=== PATIENT | female | born 1985 | race Caucasian/White ===

== ENCOUNTER 2018-07-15 13:14 | Observation (INO) ==
--- NOTE | 2018-07-15 15:30 | Urology - Consult Note ---
Date of Encounter: 07/15/18 Time of Encounter: 15:27 - Assessment and Plan (1) Right kidney stone Current Visit: Yes Status: Acute Assessment and plan: Patient with intractable right-sided flank pain requiring observation in the hospital for pain control. Patient will be scheduled tomorrow morning for cystoscopy and right ureteral stent placement if she fails to pass her stone before then (2) Nausea and vomiting Current Visit: Yes Status: Acute Assessment and plan: Patient with persistent nausea and vomiting. Continue with IV nausea medication. Qualifiers: Vomiting type: unspecified Qualified Code(s): R11.2 - Nausea with vomiting, unspecified Urology CN:HPI Consult date: 07/15/18 Reason for consult Urology: Hydronephrosis Requesting physician: Shan Hassan History of present illness: Becky is a 32-year-old female who is known to me secondary to right UPJ stone. Patient was evaluated in the office yesterday. Patient states that her pain became and bearable and she went to outside hospital emergency department. Patient also with persistent nausea and vomiting. No fevers at home. Patient states that her pain is currently controlled but was a 10 out of 10 with location and the right flank with radiation to her right groin sharp in nature. Past Med Surg Social Fam HX - Past Medical History Medical history: kidney stones, thyroid disease Psychiatric history: no psych history - Social History Smoking Status: Never smoker Smokeless Tobacco Status: No Alcohol use: none Drug use: none Medications and Allergies Levothyroxine [Synthroid] 25 mcg PO 0630 06/25/16 [History] Norgestimate-Ethinyl Estradiol [Trinessa Tablet] 1 each PO DAILY 06/25/16 [History] Calcitriol 0.5 mcg PO DAILY 07/06/18 [History] Ergocalciferol (VITAMIN D2) [Vitamin D2] 50,000 unit PO DAILY 07/06/18 [History] FLUoxetine HCl [Fluoxetine HCl] 40 mg PO DAILY 07/06/18 [History] Ondansetron ODT [Zofran ODT] 4 mg SL Q8HR PRN #14 tab.rapdis 07/06/18 [Rx] Allergy/AdvReac Type Severity Reaction Status Date / Time No Known Allergies Allergy Verified 06/25/16 13:24 Review of Systems - Constitutional no chills, no fever(s) - EENT Nose, mouth and throat: no dizziness - Cardiovascular no chest pain - Respiratory no cough, no dyspnea - Gastrointestinal abdominal pain, nausea, vomiting - Musculoskeletal back pain, no muscle weakness - Integumentary no swelling, no unusual bruising - Neurological no confusion, no weakness - Psychiatric anxiety - Hematologic/Lymphatic no lymphadenopathy - Allergic/Immunologic no throat swelling, no wheezing Exam Afebrile vital signs stable General/Neuological: alert and oriented x 3 Eyes: normal pupils, non-icteric Neck: no lymphadenopathy noted, supple to touch Cardiovascular: RRR, no murmurs Respiratory: normal respiratory effort, clear bilaterally ABD: soft, nontender, no masses palpated, good bowel sounds Back: Right flank pain on percussion normal left side spine straight Skin: no rashes noted Musculoskeletal: normal gait, FROMx4 Urology Results - Labs All other labs normal. Consult Discharge Plan - Plan Referrals: Giuliana Rogers, KARTHIK [Primary Care Provider] -
[2018-07-15] MEDS ORDERED: Levofloxacin 500 MG/100 ML 500 MG/100 ML BAG IVPB SCH (15:31)
[2018-07-15] MEDS ORDERED: Naloxone 0.4 MG/ML INJ IVP PRN (15:45)
[2018-07-15] MEDS ORDERED: Ondansetron 4 MG/2 ML VIAL IVP PRN (15:48)
--- NOTE | 2018-07-15 16:06 | Internal Med History&Physical ---
Date of Encounter: 07/15/18 Time of Encounter: 16:00 Internal Medicine - H&P: HPI Chief complaint: Nausea and vomiting of 1 day duration History of present illness: Ms. Zepeda is a 32 year old female with no significant pmh presenting with complaints of nausea, vomiting and right flank pain of 2 weeks duration getting worse in the last 24 hrs. Patient is known to urology service and was accepted for admission by Dr. Kimbrough. She says she began having symptoms of urinary urgency about 2 weeks ago, and went to the ER where she had an xray showing a right sided stone. She was discharged on the presumption that the stone would pass but continued to have symptoms of flank pain, nausea and vomiting. Denies fevers. Admits to chills She went back to the ER, and a CT scan was done showing a 7mm right kidney stone. Urology was consulted and she is being admitted for further management Past Med Surg Social Fam HX - Past Medical History Medical history: kidney stones, thyroid disease Psychiatric history: no psych history - Social History Smoking Status: Never smoker Smokeless Tobacco Status: No Alcohol use: none Drug use: none - Family History Father Living Status: Age at : 60 Cause of : Heart attack Hx Family Cardiac Disorders: Yes (Hear disease and bypass surgeries) Internal Medicine - H&P: Meds Levothyroxine [Synthroid] 25 mcg PO 0630 06/25/16 [History] Norgestimate-Ethinyl Estradiol [Trinessa Tablet] 1 each PO DAILY 06/25/16 [History] Calcitriol 0.5 mcg PO DAILY 07/06/18 [History] Ergocalciferol (VITAMIN D2) [Vitamin D2] 50,000 unit PO DAILY 07/06/18 [History] FLUoxetine HCl [Fluoxetine HCl] 40 mg PO DAILY 07/06/18 [History] Ondansetron ODT [Zofran ODT] 4 mg SL Q8HR PRN #14 tab.rapdis 07/06/18 [Rx] Allergy/AdvReac Type Severity Reaction Status Date / Time No Known Allergies Allergy Verified 06/25/16 13:24 All Systems PM: A 10-system review of systems was performed and is negative for pertinent findings except as documented above in the HPI. - Constitutional Constitutional: no chills, no fever(s), no night sweats - EENT Eyes: no change in vision, no discharge, no pain, no photophobia Ears: no ear discharge, no ear pain, no tinnitus Nose, mouth and throat: no dysphagia, no nasal discharge, no neck pain, no sore throat - Cardiovascular Cardiovascular ROS IM: no chest pain, no diaphoresis, no dyspnea, no lighthea dedness, no palpitations, no syncope - Respiratory Respiratory: no cough, no dyspnea, no wheezing, no excessive phlegm production - Gastrointestinal Gastrointestinal: no abdominal pain, no diarrhea, no hematemesis, no trini tochezia, no melena, no nausea, no vomiting - Genitourinary Genitourinary: change in urinary stream, flank pain, no dysuria, no hematuria - Musculoskeletal Musculoskeletal ROS IM: no numbness, no tingling - Integumentary Integumentary IM: no rash, no unusual bruising - Neurological Neurological ROS: no confusion, no convulsions, no focal weakness, no numbness, no tingling, no tremor(s) - Hematologic/Lymphatic Hematologic/Lymphatic: no easy bruising - Constitutional Vitals: Temp Pulse Resp BP Pulse Ox 98.4 F 91 17 148/86 97 07/15/18 15:35 07/15/18 15:35 07/15/18 15:35 07/15/18 15:35 07/15/18 15:35 Exam: NAD - Head Head exam: Present: atraumatic, normocephalic - Eye Eye exam: Present: PERRL, conjuntiva pink, sclera anicteric Pupils: Present: PERRL - Neck Neck exam general surgery: Present: supple, trachea midline. Absent: lymphadenopathy - Respiratory Respiratory exam: Present: CTAB. Absent: accessory muscle use, rales, rhonchi, wheezes - Cardiovascular Cardiovascular exam: Present: RRR, +S1, +S2. Absent: diastolic murmur, gallop, rubs, systolic murmur - GI/Abdominal GI/Abdominal exam: Present: normal bowel sounds, soft, no peritoneal signs. Absent: distended, tenderness - Additional comments: Right flank pain - Extremities Exam Extremities exam: Present: warm, radial pulses palpable and symmetrical. Absent: calf tenderness, cyanotic, pedal edema - Neurological Exam Neurological exam: Present: CN II-XII intact, oriented X3, no focal deficits. Absent: pronater drift, facial droop, speech deficit - Skin Skin exam: Present: dry, intact Internal Med - H&P Results - Labs CBC & Chem 7: 07/15/18 16:07 07/15/18 16:07 - Assessment and plan (1) Right kidney stone Current Visit: Yes Status: Acute Assessment and plan: Started on Iv fluids and empiric antibiotics with levaquin. Urology plan to observe overnight and if no stone passage, will perform cystoscopy with ureteral stent placement (2) Nausea and vomiting Current Visit: Yes Status: Acute Assessment and plan: Zofran and phenergan IV prn Qualifiers: Vomiting type: unspecified Qualified Code(s): R11.2 - Nausea with vomiting, unspecified (3) Morbid obesity Current Visit: Yes Status: Acute Assessment and plan: Diet and exercise (4) Hypothyroidism Current Visit: Yes Status: Acute Assessment and plan: Continue levothyroxine Qualifiers: Hypothyroidism type: acquired Qualified Code(s): E03.9 - Hypothyroidism, unspecified (5) DVT prophylaxis Current Visit: Yes Status: Acute Assessment and plan: heparin sc - Time Spent With Patient Total time spent is greater than 50% in coordination of care (as documented) at patient's floor/unit and/or counseling patient:
[2018-07-15 16:18] LABS: Basophils # 0.1 K/mcL (0.0-0.2); Basophils % 1.1 %; Eosinophils # 0.2 K/mcL (0.0-0.6); Hematocrit 35.1 % (35.3-44.9); Hemoglobin 11.5 g/dL (11.5-15.4); Immature Granulocytes % 0.2 % (0-4); Lymphocytes # 3.7 K/mcL (0.6-4.6); Lymphocytes % 40.1 %; Mean Corpuscular HGB Conc 32.8 g/dL (31.6-35.5); Mean Corpuscular Hemoglobin 26.5 pg (28.0-33.3); Mean Corpuscular Volume 80.9 fL (83.0-100.0); Mean Platelet Volume 9.3 fL (9.4-12.4); Monocytes # 0.6 K/mcL (0.0-1.3); Monocytes % 6.3 %; Neutrophils # 4.7 K/mcL (1.6-8.9); Platelet Count 315 K/mcL (140-400); Red Blood Count 4.34 M/mcL (3.82-4.97); Red Cell Distribution Width 13.7 % (11.5-14.5); Segmented Neutrophils % 50.3 %
[2018-07-15] MEDS ORDERED: *HR* Promethazine 25 MG/ML VIAL IVP PRN (16:33)
[2018-07-15] MEDS ORDERED: Acetaminophen 325 MG TABLET PO PRN (16:34)
[2018-07-15] MEDS ORDERED: Ketorolac 30 MG/ML VIAL IVP PRN (16:34)
[2018-07-15 16:37] LABS: BUN/Creatinine Ratio 23 (6-26); Blood Urea Nitrogen 17 mg/dL (6-20); Calcium 8.6 mg/dL (8.6-10.3); Carbon Dioxide 21 mEq/L (23-29); Chloride 108 mEq/L (98-107); Glucose 85 mg/dL (70-105); Osmolality,Calculated 287 (280-300); Potassium 3.8 mEq/L (3.5-5.1); Sodium 138 mEq/L (136-145); eGFR For Non-African Americans > 60 (> 60)
[2018-07-15] MEDS: 0.9 % Sodium Chloride 1,000 ML IVC SCH (17:03)
[2018-07-15] MEDS: *HR* Heparin 5,000 UNIT/ML VIAL SQ SCH (17:49)
[2018-07-15] MEDS ORDERED: FLUoxetine 20 MG CAPSULE PO SCH (21:00)
[2018-07-16] MEDS: 0.9 % Sodium Chloride 1,000 ML IVC SCH (04:16)
[2018-07-16] MEDS: *HR* Heparin 5,000 UNIT/ML VIAL SQ SCH (05:20)
[2018-07-16 05:43] LABS: Basophils # 0.1 K/mcL (0.0-0.2); Basophils % 1.3 %; Eosinophils # 0.2 K/mcL (0.0-0.6); Eosinophils % 2.6 %; Hematocrit 33.3 % (35.3-44.9); Hemoglobin 10.6 g/dL (11.5-15.4); Immature Granulocytes % 0.3 % (0-4); Lymphocytes # 3.5 K/mcL (0.6-4.6); Lymphocytes % 51.1 %; Mean Corpuscular HGB Conc 31.8 g/dL (31.6-35.5); Mean Corpuscular Volume 81.8 fL (83.0-100.0); Mean Platelet Volume 9.6 fL (9.4-12.4); Monocytes # 0.5 K/mcL (0.0-1.3); Monocytes % 7.1 %; Neutrophils # 2.6 K/mcL (1.6-8.9); Platelet Count 280 K/mcL (140-400); Red Blood Count 4.07 M/mcL (3.82-4.97); Red Cell Distribution Width 13.8 % (11.5-14.5); Segmented Neutrophils % 37.6 %
[2018-07-16 06:02] LABS: BUN/Creatinine Ratio 26 (6-26); Blood Urea Nitrogen 16 mg/dL (6-20); Calcium 8.5 mg/dL (8.6-10.3); Carbon Dioxide 22 mEq/L (23-29); Chloride 108 mEq/L (98-107); Glucose 90 mg/dL (70-105); Magnesium 1.7 mg/dL (1.6-2.6); Osmolality,Calculated 287 (280-300); Potassium 3.7 mEq/L (3.5-5.1); Sodium 138 mEq/L (136-145); eGFR For Non-African Americans > 60 (> 60)
[2018-07-16] MEDS ORDERED: Levothyroxine 25 MCG TABLET PO SCH (06:30)
--- NOTE | 2018-07-16 06:53 | Urology Progress Note ---
Date of Encounter: 07/16/18 Time of Encounter: 06:52 - Assessment and Plan (1) Right kidney stone Current Visit: Yes Status: Acute Assessment and plan: to or today for right ureteral stent placement (2) Nausea and vomiting Current Visit: Yes Status: Acute Qualifiers: Vomiting type: unspecified Qualified Code(s): R11.2 - Nausea with vomiting, unspecified Progress Note Narrative: patient seen. did not pass stone. to or today. Objective Initial Vital Signs Temp Pulse Resp BP Pulse Ox 98.4 F 91 17 148/86 97 07/15/18 15:35 07/15/18 15:35 07/15/18 15:35 07/15/18 15:35 07/15/18 15:35 - General physical appearance Present: well developed, well nourished - Abdomen Present: soft. Absent: tender - Labs 07/16/18 04:53 07/16/18 04:53 Diabetes panel 07/15/18 07/16/18 Range/Units 16:07 04:53 Sodium 138 138 (136-145) mEq/L Potassium 3.8 3.7 (3.5-5.1) mEq/L Chloride 108 H 108 H (98-107) mEq/L Carbon Dioxide 21 L 22 L (23-29) mEq/L BUN 17 16 (6-20) mg/dL Creatinine 0.73 0.61 (0.60-1.20) mg/dL Glucose 85 90 (70-105) mg/dL Calcium 8.6 8.5 L (8.6-10.3) mg/dL Calcium panel 07/15/18 07/16/18 Range/Units 16:07 04:53 Calcium 8.6 8.5 L (8.6-10.3) mg/dL Phosphorus 3.0 (2.7-4.5) mg/dL Pituitary panel 07/15/18 07/16/18 Range/Units 16:07 04:53 Sodium 138 138 (136-145) mEq/L Potassium 3.8 3.7 (3.5-5.1) mEq/L Chloride 108 H 108 H (98-107) mEq/L Carbon Dioxide 21 L 22 L (23-29) mEq/L BUN 17 16 (6-20) mg/dL Creatinine 0.73 0.61 (0.60-1.20) mg/dL Glucose 85 90 (70-105) mg/dL Calcium 8.6 8.5 L (8.6-10.3) mg/dL Adrenal panel 07/15/18 07/16/18 Range/Units 16:07 04:53 Sodium 138 138 (136-145) mEq/L Potassium 3.8 3.7 (3.5-5.1) mEq/L Chloride 108 H 108 H (98-107) mEq/L Carbon Dioxide 21 L 22 L (23-29) mEq/L BUN 17 16 (6-20) mg/dL Creatinine 0.73 0.61 (0.60-1.20) mg/dL Glucose 85 90 (70-105) mg/dL Calcium 8.6 8.5 L (8.6-10.3) mg/dL Consult Discharge Plan - Plan Referrals: Giuliana Rogers, KARTHIK [Primary Care Provider] -
--- NOTE | 2018-07-16 07:09 | Anesthesia Evaluation PreOp ---
Date of Encounter: 07/16/18 Time of Encounter: 07:10 - Past History Planned Operation: Cystoscopy, Right Ureteral Stent Placement Cardiac History: Denies any Significant Hx Pulmonary History: Denies Any Significant HX [employer]ATE [employer] History: Denies Any Significant HX Other Medical History: Renal (kidney stone), Thyroid Anesthesia History: Past Anesthesia, Problems (PONV) Test: Negative (07/15/2018) Alcohol Use: none Drug use: none Medications and Allergies Levothyroxine [Synthroid] 25 mcg PO 0630 06/25/16 [History] Norgestimate-Ethinyl Estradiol [Trinessa Tablet] 1 each PO DAILY 06/25/16 [History] Calcitriol 0.5 mcg PO DAILY 07/06/18 [History] Ergocalciferol (VITAMIN D2) [Vitamin D2] 50,000 unit PO DAILY 07/06/18 [History] FLUoxetine HCl [Fluoxetine HCl] 40 mg PO DAILY 07/06/18 [History] Ondansetron ODT [Zofran ODT] 4 mg SL Q8HR PRN #14 tab.rapdis 07/06/18 [Rx] Allergy/AdvReac Type Severity Reaction Status Date / Time No Known Allergies Allergy Verified 06/25/16 13:24 - Meds/Allergy Pre-op Review Medications Reviewed: Yes Allergies Reviewed: Yes Beta Blockers on Current Med List: No Anesthesia Results - Labs 07/16/18 04:53 07/16/18 04:53 Laboratory Tests 07/15/18 16:07 Serum , Qual Negative Anesthesia Exam Vital Signs/O2 Sat/Glucose, Most Recent Temp Pulse Resp BP Pulse Ox 98.1 F 94 16 130/84 97 07/16/18 03:22 07/16/18 03:22 07/16/18 03:22 07/16/18 03:22 07/16/18 03:22 Blood Glucose* 81 Height: 5'4''/1.63m Weight: 216 lbs/98.4 kg NPO (# of Hours): 8 Pain Scale: 0 Pain Scale Used: Numeric (1 - 10) - HEENT Pupil (Motor): EOMI Mallampati: III Teeth: Normal Oral Opening: Greater than 3 - [employer]ATE [employer] LOC: Oriented [employer] Motor: Normal RUE, Normal LUE, Normal RLE, Normal LLE, Normal Face [employer] Sensory: Normal: RUE, LUE, RLE, LLE, Face - Cardiac Rhythm: Regular Murmur: None - Pulmonary Breath Sounds: bilateral Clear Respiratory Effort: Symmetrical Anesthesia Assess/Plan ASA Score: 2 Level of consciousness: Cooperative, Oriented, Tranquil Anesthetic Plan: General Monitoring Plan: Standard Monitors Recovery Plan: PACU
[2018-07-16] MEDS ORDERED: *HR* Propofol 200 MG/20 ML VIAL IVP ONE (07:13)
[2018-07-16] MEDS ORDERED: *HR* FentaNYL (PF) 100 MCG/2 ML VIAL ONE (07:13)
[2018-07-16] MEDS ORDERED: *HR* Midazolam HCl 2 MG/2 ML VIAL ONE (07:13)
[2018-07-16] MEDS ORDERED: Lidocaine -MPF 2% 2 ML VIAL ONE (07:20)
[2018-07-16] MEDS ORDERED: Scopolamine Patch 1.5 MG PATCH.TD72 ONE (07:31)
[2018-07-16] MEDS ORDERED: *HR* OxyCODONE Immed Rel 5 MG TABLET PO PRN (07:34)
[2018-07-16] MEDS ORDERED: *HR* Morphine 2 MG/ML SYRINGE IVP PRN (07:34)
[2018-07-16] MEDS ORDERED: Dexamethasone 4 MG/ML VIAL ONE (08:05)
[2018-07-16] MEDS ORDERED: Ondansetron 4 MG/2 ML VIAL ONE (08:05)
[2018-07-16] MEDS ORDERED: Ketorolac 30 MG/ML VIAL ONE (08:07)
[2018-07-16] MEDS ORDERED: *HR* HYDROMORPHONE 2 MG/ML VIAL ONE (08:11)
--- NOTE | 2018-07-16 08:14 | Operative Note ---
Date of procedure: 07/16/18 Pre-op diagnosis: right ureteral stone Post-op diagnosis: same Procedure: Cystoscopy and right 4.8 x 26 cm ureteral stent placement Anesthesia: GETA Surgeon: Jose Kimbrough Was there an assistant maintenance manager present: No Estimated blood loss (cc): 0 Specimen: none Condition: stable Disposition: PACU Procedure in Detail: Patient was prepped and draped in normal sterile fashion. Timeout procedure performed. I then inserted the cystoscope in the patient's bladder. The right ureteral orifice was cannulated. This was done using a Glidewire. I then advanced this into the right kidney. I could visualize the right UPJ stone. I then placed a 4.8 x 26 cm stent with good curl seen in the right kidney and in the bladder. Bladder was drained and procedure was ended. Patient okay for discharge once recovered from anesthesia
--- NOTE | 2018-07-16 08:45 | Anesthesia Evaluation Post Op ---
Date of Encounter: 07/16/18 Time of Encounter: 08:44 - Vital Signs Vital Signs: Vital Signs/O2 Sat, Most Current Temp Pulse Resp BP Pulse Ox 98.5 F 81 16 127/83 97 07/16/18 08:17 07/16/18 08:37 07/16/18 08:37 07/16/18 08:37 07/16/18 08:37 - Lungs Lungs: Clear Ascult./Percussion - Airway Airway: Non-obstructed - Cardiovascular Regular Rate - Mental Status Mental Status: Alert & Oriented, Answers Appropriately - Pain Pain Scale: 0 Pain Scale used: Numeric (1 - 10) - Nausea Vomiting Nausea Vomiting: Not Present - Hydration Hydration: NPO, Has not voided - Discharge PostOp Status: Transfer Patient to floor
[2018-07-16] MEDS ORDERED: Ketorolac 30 MG/ML VIAL IVP PRN (08:58)
[2018-07-16] MEDS ORDERED: Acetaminophen 325 MG TABLET PO PRN (08:58)
[2018-07-16] MEDS ORDERED: 0.9 % Sodium Chloride 1,000 ML IVC SCH (08:58)
[2018-07-16] MEDS ORDERED: Naloxone 0.4 MG/ML INJ IVP PRN (08:58)
[2018-07-16] MEDS ORDERED: Ondansetron 4 MG/2 ML VIAL IVP PRN (08:58)
[2018-07-16] MEDS ORDERED: *HR* Promethazine 25 MG/ML VIAL IVP PRN (08:58)
[2018-07-16] MEDS ORDERED: Levofloxacin 500 MG/100 ML 500 MG/100 ML BAG IVPB SCH (09:00)
[2018-07-16] MEDS ORDERED: NON-FORMULARY MEDICATION 1 EACH EACH (Fluoxetine Hcl [Fluoxetine Hcl] 40 MG) PO SCH (09:00)
[2018-07-16] MEDS ORDERED: [UNRECOGNIZED DRUG - OTHER] PO SCH (09:00)
[2018-07-16] MEDS ORDERED: CALCITRIOL 0.5 MCG PO SCH (09:00)
--- NOTE | 2018-07-16 10:10 | Discharge Summary ---
Orders not resulted at time of discharge: Pending orders 07/16/18 08:00 XR KUB [XR] Routine Date of Encounter: 07/16/18 Time of Encounter: 10:00 - Discharge Diagnosis (1) Right kidney stone Priority: Primary Status: Acute Assessment and Plan: 32 year old female with no significant pmh presenting with complaints of nausea, vomiting and right flank pain of 2 weeks duration getting worse in the last 24 hrs. Patient is known to urology service and was accepted for admission by Dr. Kimbrough. She says she began having symptoms of urinary urgency about 2 weeks ago, and went to the ER where she had an xray showing a right sided stone. She was discharged on the presumption that the stone would pass but continued to have symptoms of flank pain, nausea and vomiting. Denies fevers. Admits to [facility] went back to the ER, and a CT scan was done showing a 7mm right kidney stone. She was assessed with abdominal pain secondary to right kidney stone and started on Iv fluids and empiric antibiotics with levaquin. Urology was consulted and performed a cystoscopy with ureteral stent placement. She will follow up with urology as an outpatient and was discharged in a stable condition (2) Nausea and vomiting Priority: Primary Status: Acute Qualifiers: Vomiting type: unspecified Qualified Code(s): R11.2 - Nausea with vomiting, unspecified (3) Morbid obesity Priority: Primary Status: Acute (4) Hypothyroidism Priority: Primary Status: Acute Qualifiers: Hypothyroidism type: acquired Qualified Code(s): E03.9 - Hypothyroidism, unspecified (5) DVT prophylaxis Priority: Primary Status: Acute Hospital course: Ms. Zepeda is a 32 year old female - Time Spent with Patient Total time spent providing and/or coordinating discharge services: - Discharge Medications Prescriptions: levoFLOXacin [Levaquin] 500 mg PO DAILY #3 tablet Home Medications: Levothyroxine [Synthroid] 25 mcg PO 0630 06/25/16 [History] Norgestimate-Ethinyl Estradiol [Trinessa Tablet] 1 each PO DAILY 06/25/16 [History] Calcitriol 0.5 mcg PO DAILY 07/06/18 [History] Ergocalciferol (VITAMIN D2) [Vitamin D2] 50,000 unit PO DAILY 07/06/18 [History] FLUoxetine HCl [Fluoxetine HCl] 40 mg PO DAILY 07/06/18 [History] Ondansetron ODT [Zofran ODT] 4 mg SL Q8HR PRN #14 tab.rapdis 07/06/18 [Rx] levoFLOXacin [Levaquin] 500 mg PO DAILY #3 tablet 07/16/18 [Rx] Allergies/Adverse Reactions: Allergy/AdvReac Type Severity Reaction Status Date / Time No Known Allergies Allergy Verified 06/25/16 13:24 Date of admission: 07/15/18 15:14 Primary care physician: Giuliana Rogers CNP - Constitutional Vitals: Temp Pulse Resp BP Pulse Ox 98.7 F 88 18 119/81 96 07/16/18 09:09 07/16/18 09:09 07/16/18 09:09 07/16/18 09:09 07/16/18 09:09 Exam: NAD - Patient Status Disposition: Home, Self-Care - Discharge Instructions Follow Up With: Jose Kimbrough MD [Partnered Physician] - (Web request sent. Please call patient ) Giuliana Rogers CNP [Primary Care Provider] - Forms: Work/School Release
[2018-07-16 12:24] VITALS: BP 135/82
[2018-07-16] MEDS ORDERED: *HR* Heparin 5,000 UNIT/ML VIAL SQ SCH (18:00)
[2018-07-16] MEDS ORDERED: FLUoxetine 20 MG CAPSULE PO SCH (21:00)
[2018-07-17] MEDS ORDERED: Levothyroxine 25 MCG TABLET PO SCH (06:30)
== END 2018-07-16 13:05 | disposition home or self-care (01) ==
LOC: 3ANU
PROVIDERS: ADMIT Internal Medicine; ATTEND Internal Medicine